=== PATIENT | male | born 1965 | race Caucasian/White ===

== ENCOUNTER → 2024-07-16 | Day surgery (SDC) | payer BC ==
[2024-07-14 13:33] VITALS: BMI 45.6
[~2024-07-16] MED LIST: KETAMINE HCL IN 0.9 % NACL 50 MG/5 ML SYRINGE ONE; LIDOCAINE 1% INJ 10MG/ML (20 ML MDV) ONE; MIDAZOLAM 2 MG/2 ML VIAL ONE; PROPOFOL 10 MG/ML 20 ML VIAL IV ONE; fentaNYL (PF) 50 MCG/ML 2 ML AMP ONE
[2024-07-16] MEDS: IV FLUID CONTINUATION 1,000 ML IV ONE (08:39)
[2024-07-16 08:54] VITALS: TEMP 97.6
[2024-07-16] MEDS: LACTATED RINGERS 1,000 ML IV SCH (08:54)
--- NOTE | 2024-07-16 09:32 | P.PCN ---
Date of Procedure: 07/16/24 Procedure(s) Performed: Brief history: Patient is a pleasant 58-year-old white male scheduled for an elective upper endoscopy as well as colonoscopy as a part of evaluation of intermittent episodes of severe left-sided abdominal pain for the last 1 year duration. He had 3 episodes of each lasting for a few hours and subsided. Procedure performed: Esophagogastroduodenoscopy with biopsy Colonoscopy with biopsy Preoperative diagnosis: Intermittent episodes of severe left upper left-sided abdominal pain Screening for colon cancer Anesthesia: MAC Procedure: After informed consent was obtained from the patient was brought into the endoscopy unit and IV sedation was administered by anesthesia under continuous monitoring. Initially upper endoscopy was done. The Olympus GF 160 video endoscope was inserted inserted into the mouth and esophagus intubated without any difficulty and was gradually advanced into the stomach and duodenum and carefully examined. The bulb had erythema consistent with duodenitis and second part of the duodenum appeared normal. Scope was then withdrawn to the stomach adequately insufflated with air. The antrum had mild gastritis and biopsies were done from this area. Rest of the body, cardia and fundus appeared normal. The scope was then withdrawn into the esophagus. The GE junction was located at 40 cm to the incisors. It appeared regular with no erythema erosions or ulcerations. Rest of the esophagus appeared normal. Patient tolerated the procedure well. At this time the patient continued to remain sedation. Initial digital rectal examination was normal. Olympus CF 160 video colonoscope was then inserted into the rectum and gradually advanced to the cecum without any difficulty. Careful examination was performed as the scope was gradually being withdrawn. The prep was excellent. The cecum, ascending colon, transverse colon, descending colon, appeared normal. There was mild patchy areas of erythema noted in the sigmoid colon extending from 20 to 25 cm from the anal verge with no erosions or ulcerations and biopsies were done from this area. Rest of the sigmoid colon and rectum appeared normal. Katter sigmoid diverticulosis. Retroflexion was performed in the rectum and no lesions were noted. Patient tolerated the procedure well. Impression: 1. Upper endoscopy revealed mild antral gastritis and duodenitis 2. Colonoscopy revealed scattered sigmoid diverticulosis and mild sigmoid colitis Recommendations: Findings of this examination were discussed with the patient as well as his family. He was advised to follow-up with the biopsy results. Recommended repeat colonoscopy in 10 years. Continue with Bentyl as needed. Recommend a high-fiber diet and fiber supplements on a regular basis. Follow up in the office in 3 to 4 weeks.
[2024-07-16 09:49] VITALS: BP 112/72; PULSE 50; RESP 16
== END ==
LOC: ORWHC2ENDO 08:25 → EDSEX 09:30
PROVIDERS: ATTEND Internal Medicine Gastroenterology
DX: K29.80 Duodenitis without bleeding (principal); K29.50 Unspecified chronic gastritis without bleeding; Z12.11 Encounter for screening for malignant neoplasm of colon; K57.30 Diverticulosis of large intestine without perforation or abscess without bleeding; Z98.890 Other specified postprocedural states
CPT/HCPCS: 88305; 45380; 43239; J2250; J2001; J3010; J2704